=== PATIENT | male | born 1970 | race African-American/Black ===

== ENCOUNTER 2017-09-17 11:27 | Emergency (ER) | payer OTHER ==
[~2017-09-17] VITALS: Ht 172.7 cm; Wt 74.8 kg
[~2017-09-17 11:27] MED LIST: HYDROCHLOROTHIA25 M2 PO; LISINOPRIL20 MG PO; ZANTAC 150MG T150 MG PO
[2017-09-17] MEDS ORDERED: TRAMADOL 50 MG50 MG PO (12:11)
== END 2017-09-17 12:25 | disposition home or self-care (01) ==
LOC: ER 11:27
DX: M25.511 Pain in right shoulder (principal); M79.631 Pain in right forearm; F17.210 Nicotine dependence, cigarettes, uncomplicated; V89.2XXA Person injured in unspecified motor-vehicle accident, traffic, initial encounter; Y93.I9 Activity, other involving external motion; Y92.89 Other specified places as the place of occurrence of the external cause; Y99.8 Other external cause status